=== PATIENT | male | born 1995 | race Caucasian/White ===

== ENCOUNTER 2017-07-12 13:50 | Day surgery (SDC) | payer OTHER ==
[2017-07-12] MEDS ORDERED: LIDOCAINE 2% JELLY 5 ML TUBE ONE (13:58)
== END 2017-07-12 16:34 | disposition home or self-care (01) ==
LOC: END 13:50
PROVIDERS: ATTEND Internal Medicine Gastroenterology
PROC: 4A0B7BZ Measurement of Gastrointestinal Pressure, Via Natural or Artificial Opening (ICD-10-PCS; principal; 2017-07-12)
PROC: 4A0B78Z Measurement of Gastrointestinal Motility, Via Natural or Artificial Opening (ICD-10-PCS; 2017-07-12)
DX: K21.9 Gastro-esophageal reflux disease without esophagitis (principal)
CPT/HCPCS: 91010; 91035